=== PATIENT | male | born 1965 | race Caucasian/White ===

== ENCOUNTER 2017-02-21 10:15 | Emergency (ER) | payer MEDICAID ==
[~2017-02-21] VITALS: Ht 162.6 cm; Wt 89.0 kg
[2017-02-21 10:17] VITALS: Ht 162.6 cm; Wt 89.0 kg
[2017-02-21] MEDS ORDERED: ONDANSETRON (ODT) 4 MG TAB ODT STA (10:37)
--- NOTE | 2017-02-21 10:48 | ERD ---
ER Documentation Chief Complaint Date/Time DATE: 02/21/17 TIME: 10:44 Chief Complaint carvajal x 3 days HPI Patient is a 51 year old male who presents to the ED with gradual onset headache x 3 days. He states that he has never had headaches before and has never had pain like this before. He states that the pain is located in the front of his head and does not radiate. He states that he has taken advil which has barely helped with his symptoms. Also complains that he feels drowsy. Denies syncopal episodes or blurry vision or neck pain or neck stiffness. Denies trauma or falls. Denies fever or chills. Denies cough or congestion. Denies abdominal pain, nausea, vomiting or diarrhea. Patient also states that he has diabetes and has not gone to a primary care provider and would like to get his blood checked. States that he is taking medication. Denies polyuria or polyphagia or polydipsia. ROS All systems reviewed and are negative except as per history of present illness. Medications Home Meds Active Scripts Acetaminophen/Aspirin/Caffeine* (Excedrin*) 1 Tab Tab, 1 TAB PO BID for 30 Days , TAB Prov:BOBBI ALICEA PA-C 02/21/17 PMhx/Soc Medical and Surgical Hx: pt denies Medical Hx, pt denies Surgical Hx History of Surgery: No Anesthesia Reaction: No Hx Neurological Disorder: No Hx Respiratory Disorders: No Hx Cardiac Disorders: No Hx Psychiatric Problems: No Hx Miscellaneous Medical Probl: Yes (diabetes) Hx Alcohol Use: No Hx Substance Use: No Hx Tobacco Use: No Smoking Status: Never smoker FmHx Family History: No coronary disease, No diabetes, No other Physical Exam Vitals Vital Signs Date Time Temp Pulse Resp B/P Pulse Ox O2 Delivery O2 Flow Rate FiO2 02/21/17 10:17 97.4 88 18 119/75 99 Physical Exam GENERAL: Well-developed, well-nourished male. Appears in no acute distress. HEAD: Normocephalic, atraumatic. EYES: Pupils are equally reactive bilaterally. EOMs grossly intact. No conjunctival erythema. ENT: Moist mucous membranes. No uvula deviation. No kissing tonsils. No exudates. NECK: Supple. No lymphadenopathy or thyromegaly. No meningismus. negative kernig. negative brudinski. LUNG: Clear to auscultation bilaterally. No rhonchi, wheezing, rales or coarse breath sounds. HEART: Regular rate and rhythm. No murmurs, rubs or gallops. Extremities: Equal pulses bilaterally. No peripheral clubbing, cyanosis or edema. No unilateral leg swelling. NEUROLOGIC: Alert and oriented. Moving all four extremities. 5/5 strength in all extremities. Normal speech. Steady gait. Cranial nerves II through XII intact. No ataxia negative Romberg test. SKIN: Normal color. Warm and dry. No rashes or lesions. Capillary refill < 2 seconds Results 24 hrs Laboratory Tests Test 02/21/17 10:53 Bedside Glucose 141mg/dL Current Medications Medications (Trade) Dose Ordered Sig/Serg Route PRN Reason Start Time Stop Time Status Last Admin Dose Admin Acetaminophen (Tylenol Tab) 650 mg ONCE ONCE PO 02/21/17 11:00 02/21/17 11:01 DC 02/21/17 10:43 Ondansetron HCl (Zofran Odt) 4 mg ONCE STAT ODT 02/21/17 10:37 02/21/17 10:39 DC 02/21/17 10:44 Procedures/MDM ER COURSE: I kept the patient and/or family informed of laboratory and diagnostic imaging results throughout the emergency room course. IMAGING STUDIES [place] [id number] Radiology Main Line: [phone] DIAGNOSTIC IMAGING REPORT Patient: CRYSTAL KIMBROUGH : 1965 Age: 51 Sex: M MR #: [id number] DOS: 02/21/17 1037 Ordering MD: BOBBI ALICEA PA-C Location: [facility] Room/Bed: PROCEDURE: CT Brain without contrast. CLINICAL INDICATION: Headache TECHNIQUE: A CT of the brain was performed on a multidetector CT scanner utilizing axial sections from the skull base through the vertex without contrast. Images were reviewed on a high-resolution PACS workstation. Exam CTDI = 44.88 mGy and the DLP = 720.23 mGy-cm. One or more of the following dose reduction techniques were used: Automated exposure control Adjustment of the mA and/or kV according to patient size. Use of iterative reconstruction technique. COMPARISON: None available FINDINGS: There is no evidence of intracranial hemorrhage, mass effect or midline shift. No abnormal intra-axial or extra-axial fluid collections are seen. The density of the brain is normal and the king/white matter differentiation is well preserved. The osseous structures are unremarkable. Paranasal sinuses are clear. IMPRESSION: Ring artifact is identified in almost all images (CT detector failure/ miscalibration) 1. No intracranial hemorrhage, mass effect or midline shift. RPTAT: BB .Hilaria Stoddard MD, MD Date Time Electronically viewed and signed by .Hilaria Stoddard MD, MD on 02/21/2017 11:20 .O/ CC: BOBBI ALICEA PAOtis MEDICATIONS Tylenol, Zofran. Tolerated well with no adverse reaction. Accu-Chek was 141. MEDICAL DECISION MAKING: This is a 51-year-old male who presents with headache 3 days. Vital signs were reviewed. Patient is afebrile. Patient is not hypoxic. Patient is not toxic or ill-appearing. Due to patient's new onset of headache a CT scan was ordered. Risk versus benefits of a CT scan were discussed with patient. Patient has headache of unknown etiology likely migraine. CT scan is read by radiologist was unremarkable. Low suspicion for intracranial hemorrhage, meningitis, intracranial mass, concussion, temporal arteritis, stroke, elevated intracranial pressure, seizure. Patient's Accu-Chek here in the ED was 141 I have low suspicion for DKA, HON K. Advised patient to follow-up with regular doctor regarding management of his diabetes and follow-up of his headache. DISCHARGE: At this time, patient is stable for discharge and outpatient management with no new complaints during the ER course. Patient was sent home with Excedrin and copy of imaging study.. Patient will be discharged home with instructions to recheck for new or worsening symptoms such as fever, nausea, weakness, LOC and to follow up with primary care in the next 1-2 days. Patient was advised to return to the ER for any new or worsening symptoms. Plan was discussed and patient and/or family understands and agrees. Home instructions were given. Departure Diagnosis: Primary Impression: Headache Headache type: unspecified Headache chronicity pattern: acute headache Intractability: not intractable Qualified Code: R51 - Acute nonintractable headache, unspecified headache type Condition: Stable BOBBI ALICEA PA-C Feb 21, 2017 10:48
[2017-02-21] MEDS ORDERED: ACETAMINOPHEN 325 MG TAB PO ONE (11:00)
--- NOTE | 2017-02-21 11:20 | RADRPT ---
PROCEDURE: CT Brain without contrast. CLINICAL INDICATION: Headache TECHNIQUE: A CT of the brain was performed on a multidetector CT scanner utilizing axial sections from the skull base through the vertex without contrast. Images were reviewed on a high-resolution [employer] workstation. Exam CTDI = 44.88 mGy and the DLP = 720.23 mGy-cm. One or more of the following dose reduction techniques were used: Automated exposure control Adjustment of the mA and/or kV according to patient size. Use of iterative reconstruction technique. COMPARISON: None available FINDINGS: There is no evidence of intracranial hemorrhage, mass effect or midline shift. No abnormal intra-ax ial or extra-axial fluid collections are seen. The density of the brain is normal and the king/whit e matter differentiation is well preserved. The osseous structures are unremarkable. Paranasal si nuses are clear. IMPRESSION: Ring artifact is identified in almost all images (CT detector failure/miscalibration) 1. No intracranial hemorrhage, mass effect or midline shift. RPTAT: BB .Hilaria Stoddard MD, Date Time Electronically viewed and signed by .Hilaria Stoddard MD, on 02/21/2017 11:20 .O/
[2017-02-21] MEDS ORDERED: EXCED PO (11:39)
== END 2017-02-21 12:00 | disposition home or self-care (01) ==
LOC: FTE 10:15
DX: R51 Headache (principal); E11.9 Type 2 diabetes mellitus without complications
CPT/HCPCS: 70450; 82962; Z7502; Z7610

== ENCOUNTER 2017-06-26 23:11 | Emergency (ER) | payer SELFPAY ==
[~2017-06-26] VITALS: Ht 172.7 cm; Wt 72.7 kg
[~2017-06-26 23:11] MED LIST: EXCED PO
[2017-06-26 23:52] VITALS: Ht 172.7 cm; Wt 72.7 kg
== END 2017-06-27 00:15 | disposition left against medical advice (07) ==
LOC: FTE 23:11
DX: Z53.21 Procedure and treatment not carried out due to patient leaving prior to being seen by health care provider (principal)